=== PATIENT | female | born 1940 | race Caucasian/White ===

== ENCOUNTER 2020-07-17 10:12 | Inpatient (IN) | payer MEDICARE, OTHER ==
[~2020-07-17] VITALS: Ht 170.2 cm; Wt 59.0 kg
[~2020-07-17 10:12] MED LIST: ZOFRAN4 MG PO
[2020-07-17 10:50] LABS: HEMOGLOBIN 9.3 gm/dl (12.3-15.3); RED BLOOD COUNT 3.07 M/UL (4.00-5.10); WHITE BLOOD COUNT 4.9 K/UL (4.5-11.0)
[2020-07-17] MEDS ORDERED: ASPIRIN EC81 MG PO (17:02)
[2020-07-17] MEDS ORDERED: MELOXICAM7.5 MG PO (17:03)
[2020-07-17] MEDS ORDERED: ARICEPT5 MG PO (17:03)
[2020-07-17] MEDS ORDERED: LIPITOR TAB 2020 MG PO (17:04)
[2020-07-17] MEDS ORDERED: SENNA-S 8.6-501 EACH PO (17:04)
[2020-07-17] MEDS ORDERED: NAMENDA10 MG PO (17:04)
[2020-07-17] MEDS ORDERED: ACETAMINOPHEN-1 EAC1 PO (17:06)
[2020-07-17] MEDS ORDERED: TYLENOL 500 MG500 MG PO (17:07)
[2020-07-17] MEDS ORDERED: LACTULOSE10 GM/15 M PO (17:09)
[2020-07-17] MEDS ORDERED: BISACODYL10 MG PR (17:09)
[2020-07-18 04:24] LABS: HEMOGLOBIN 7.7 gm/dl (12.3-15.3); WHITE BLOOD COUNT 4.2 K/UL (4.5-11.0)
[2020-07-18 04:25] LABS: RED BLOOD COUNT 2.52 M/UL (4.00-5.10)
[2020-07-18 12:20] LABS: HEMOGLOBIN 7.5 gm/dl (12.3-15.3); RED BLOOD COUNT 2.45 M/UL (4.00-5.10); WHITE BLOOD COUNT 3.9 K/UL (4.5-11.0)
[2020-07-19 03:24] LABS: RED BLOOD COUNT 2.64 M/UL (4.00-5.10); WHITE BLOOD COUNT 4.4 K/UL (4.5-11.0)
[2020-07-20 03:18] LABS: RED BLOOD COUNT 2.62 M/UL (4.00-5.10); WHITE BLOOD COUNT 3.9 K/UL (4.5-11.0)
[2020-07-21 02:16] LABS: HEMOGLOBIN 8.7 gm/dl (12.3-15.3); RED BLOOD COUNT 2.88 M/UL (4.00-5.10); WHITE BLOOD COUNT 4.6 K/UL (4.5-11.0)
[2020-07-23 10:14] LABS: CREATININE, URINE 25.8 mg/dL (Not Estab.)
[2020-07-24 07:04] LABS: HEMOGLOBIN 9.7 gm/dl (12.3-15.3); RED BLOOD COUNT 3.24 M/UL (4.00-5.10); WHITE BLOOD COUNT 10.1 K/UL (4.5-11.0)
[2020-07-24 09:13] LABS: ANTISTREPTOLYSIN O AB <20.0 IU/mL (0.0-200.0); COMPLEMENT C3, SERUM 95 mg/dL (82-167); COMPLEMENT C4, SERUM 30 mg/dL (12-38); HBSAG SCREEN Negative (Negative); HCV AB <0.1 (0.0-0.9)
[2020-07-24 13:51] LABS: HEMOGLOBIN 9.4 gm/dl (12.3-15.3); RED BLOOD COUNT 3.13 M/UL (4.00-5.10)
[2020-07-24 13:52] LABS: WHITE BLOOD COUNT 7.3 K/UL (4.5-11.0)
--- NOTE | 2020-07-25 04:21 | NUR ---
ORAL CARE COMPLETED Q2 HOURS OR NEEDED. MOUTH SWABBED WITH WATER AND CLEANED.
[2020-07-25 05:48] LABS: HEMOGLOBIN 11.1 gm/dl (12.3-15.3)
[2020-07-25 05:49] LABS: RED BLOOD COUNT 3.75 M/UL (4.00-5.10); WHITE BLOOD COUNT 10.8 K/UL (4.5-11.0)
[2020-07-25 14:10] LABS: ANTI-DSDNA ANTIBODIES <1 IU/mL (0-9)
[2020-07-26 05:48] LABS: HEMOGLOBIN 9.8 gm/dl (12.3-15.3); RED BLOOD COUNT 3.31 M/UL (4.00-5.10); WHITE BLOOD COUNT 8.9 K/UL (4.5-11.0)
[2020-07-26 10:10] LABS: ANTIGLOMERULAR BM AB 2 units (0-20)
[2020-07-27 05:19] LABS: HEMOGLOBIN 9.6 gm/dl (12.3-15.3); RED BLOOD COUNT 3.23 M/UL (4.00-5.10); WHITE BLOOD COUNT 9.9 K/UL (4.5-11.0)
[2020-07-27 08:14] LABS: A/G RATIO 0.6 (0.7-1.7); ALBUMIN 2.5 g/dL (2.9-4.4); ALPHA-1-GLOBULIN 0.4 g/dL (0.0-0.4); ALPHA-2-GLOBULIN 0.7 g/dL (0.4-1.0); BETA GLOBULIN 2.6 g/dL (0.7-1.3); GAMMA GLOBULIN 0.5 g/dL (0.4-1.8); GLOBULIN, TOTAL 4.2 g/dL (2.2-3.9); IMMUNOGLOBULIN A, QN, SERUM 3177 mg/dL (64-422); IMMUNOGLOBULIN G, QN, SERUM 177 mg/dL (586-1602); IMMUNOGLOBULIN M, QN, SERUM 7 mg/dL (26-217); M-SPIKE Comment: g/dL (Not Observed); PROTEIN, TOTAL, SERUM 6.7 g/dL (6.0-8.5)
[2020-07-27 16:11] LABS: ANTIMYELOPEROXIDASE (MPO) ABS <9.0 U/mL (0.0-9.0); ANTIPROTEINASE 3 (PR-3) ABS <3.5 U/mL (0.0-3.5); CYTOPLASMIC (C-ANCA) <1:20 titer (Neg:<1:20); PERINUCLEAR (P-ANCA) <1:20 titer (Neg:<1:20)
== END 2020-07-28 15:35 | DRG 840 ==
LOC: ER1 10:12 → PROG CARE 13:23
PROVIDERS: Emergency Medicine; Internal Medicine; Internal Medicine Nephrology; Physician Assistant; ADMIT Internal Medicine Infectious Disease
PROC: 8E0ZXY6 Isolation (ICD-10-PCS; 2020-07-18)
PROC: 3E0G76Z Introduction of Nutritional Substance into Upper GI, Via Natural or Artificial Opening (ICD-10-PCS; principal; 2020-07-24)
DX: C90.00 Multiple myeloma not having achieved remission (principal); A41.89 Other specified sepsis; N17.0 Acute kidney failure with tubular necrosis; G93.41 Metabolic encephalopathy; U07.1 COVID-19; J12.82 Pneumonia due to coronavirus disease 2019; J69.0 Pneumonitis due to inhalation of food and vomit; J96.01 Acute respiratory failure with hypoxia; R65.20 Severe sepsis without septic shock; D61.818 Other pancytopenia; E87.2 Acidosis; E87.0 Hyperosmolality and hypernatremia; E86.0 Dehydration; G30.9 Alzheimer's disease, unspecified; F02.80 Dementia in other diseases classified elsewhere, unspecified severity, without behavioral disturbance, psychotic disturbance, mood disturbance, and anxiety; I10 Essential (primary) hypertension; M19.90 Unspecified osteoarthritis, unspecified site; H91.90 Unspecified hearing loss, unspecified ear; E78.5 Hyperlipidemia, unspecified; Z79.82 Long term (current) use of aspirin; D64.9 Anemia, unspecified; Z79.899 Other long term (current) drug therapy; T39.395A Adverse effect of other nonsteroidal anti-inflammatory drugs [NSAID], initial encounter; Z66 Do not resuscitate; D69.6 Thrombocytopenia, unspecified; D72.819 Decreased white blood cell count, unspecified; E87.6 Hypokalemia
CPT/HCPCS: 36415; 36600; 70450; 71045; 74018; 80048; 80053; 80202; 81001; 82043; 82570; 82784; 82803; 83520; 83605; 83735; 83883; 84100; 84133; 84155; 84156; 84165; 84300; 84484; 85025; 85027; 85379; 86038; 86060; 86160; 86225; 86256; 86334; 86803; 87040; 87077; 87081; 87086; 87186; 87340; 89050; 92526; 92610; 93005; 94760; 96365; 96366; 96367; 96375; 99285; C9113; J1644; J2020; J2270; J2543; J3370; J3480; J7030; J7070; P9047; U0002